=== PATIENT | male | born 1960 | race Caucasian/White ===

== ENCOUNTER 2021-08-03 14:42 | Outpatient (CLI) | payer BC, MEDICARE, SELFPAY ==
--- NOTE | ~2021-08-03 | US_ITS ---
EXAMINATION: US scrotum doppler DATE: 08/03/2021 15:29 INDICATION: Right testicular pain TECHNIQUE: Testicular sonogram utilizing grayscale and Doppler COMPARISON: None. FINDINGS: The right testis measures 4.3 x 3.0 x 1.9 cm. The left testis measures 4.1 x 2.3 x 2.2 cm. There is s ubtle decreased echogenicity and diffuse increased vascular flow of both the right testis and epididy mis relative to the contralateral left testis and left epididymis consistent with right epididymoorch itis. No abscess or hydrocele. The left epididymis is normal with normal vascular flow. There is no v aricocele. IMPRESSION: 1. Asymmetric hyperemic and edematous-appearing right testis and epididymis consistent with right si ded epididymoorchitis. Reviewed, dictated and finalized at location [facility] IMPRESSION: 1. Asymmetric hyperemic and edematous-appearing right testis and epididymis co nsistent with right sided epididymoorchitis.
== END 2021-08-03 14:43 | disposition home or self-care (01) ==
PROVIDERS: Visit Provider Physician Assistant
DX: N50.811 Right testicular pain (principal)
CPT/HCPCS: 76870; 93976

== ENCOUNTER 2022-06-14 01:08 | Day surgery (SDC) | payer BC, MEDICARE, SELFPAY ==
[2022-06-08 14:51] VITALS: BMI 25.0
[2022-06-14 12:42] VITALS: BP 133/85; PULSE 58; RESP 16; TEMP 36.2; O2SAT 100
[2022-06-14] MEDS: LACTATED RINGERS 1,000 ML 150 ML IV CONT (12:52)
--- NOTE | 2022-06-14 13:41 | WPDANESEPPF ---
Anes - Initial Pre Proc Eval Procedure: Operation Date: 06/14/22 14:00 Proposed Procedures p Screening Colonoscopy - Gordon Cedillo MD Date/Time: 06/14/22 13:41 Surgeon: Gordon Cedillo MD Pre Op Diagnosis: neoplasm screening Patient Data Age: 62 Gender: M Height: 1.91 m Weight: 92 kg Last Vital Signs Temp 97.1 F L 06/14/22 12:42 Pulse 58 L 06/14/22 12:42 Resp 16 06/14/22 12:42 BP 133/85 06/14/22 12:42 Pulse Ox 100 06/14/22 12:42 O2 Del Method Room Air 06/14/22 12:42 Allergies Allergy/AdvReac Type Severity Reaction Status Date / Time acetaminophen [From Vicodin] Allergy Rash Verified 06/14/22 12:38 hydrocodone [From Vicodin] Allergy Rash Verified 06/14/22 12:38 Home Medications Medication Instructions Recorded Confirmed Type amlodipine 5 mg tablet 5 mg PO DAILY 06/08/22 06/14/22 History carvedilol 12.5 mg tablet 6.25 mg PO BID 06/08/22 06/14/22 History cyclobenzaprine 10 mg tablet 10 mg PO BID PRN Muscle Spasm 06/08/22 06/14/22 History finasteride 5 mg tablet 5 mg PO DAILY 06/08/22 06/14/22 History meloxicam 15 mg tablet 15 mg PO DAILY PRN Pain 06/08/22 06/14/22 History pravastatin 40 mg tablet 40 mg PO DAILY 06/08/22 06/14/22 History Patient hx anesthesia problems: none Family hx anesthesia problems: none Results Review: All pre-operative results and documents have been reviewed as part of the pre-operative evaluation. [facility] Family History Family History (System 08/05/21 @ 12:40 by Shae Farooq) Sibling Family history of lymphoma Father Family history of heart disease in male family member before age 55 Social History Social History (System 08/05/21 @ 12:40 by Shae Farooq) Smoking status: Never smoker Alcohol intake: never Substance use type: marijuana Living arrangements: with family Spiritual care concerns: No Anes - Eval Final PreProcedure Day of Procedure 06/14/22 13:41 Patient weight: normal Heart: regular rate and rhythm Lungs: clear to auscultation Airway: Mallampati scale class II Neurological: alert and oriented Last oral intake: >/= 8 hours ASA classification: II Emergent: no Anesthetic plan: proceed Anesthesia type and monitoring: general GIVS and standard monitoring Results Review: All pre-operative results and documents have been reviewed as part of the pre-operative evaluation. Informed Consent: The patient's anesthetic plan and its attendant risks and benefits were discussed with the patient/family/POA. Questions were solicited and answers provided to the satisfaction of the patient/family/POA.
--- NOTE | 2022-06-14 13:57 | PM.HPGS ---
History of Present Illness History of Present Illness Consent: Risks, benefits, and alternatives have been discussed and questions answered. Patient agrees to proceed with procedure. Chief complaint: neoplasm screening Narrative: Tor Baker is a 62 year old male here for screening colonoscopy, last one 5 years ago Review of Systems Constitutional: Constitutional: Denies headache(s) and Denies weakness Eyes: Eyes: Denies blurry vision ENT: Reports Normal hearing present, Denies headache(s) and Denies neck pain Cardiovascular: Cardiovascular: Denies chest pain and Denies dyspnea Respiratory: Respiratory: Denies dyspnea Gastrointestinal: Gastrointestinal: Reports no additional gastrointestinal complaints Genitourinary: Genitourinary: Denies dysuria Musculoskeletal: Musculoskeletal: Denies neck pain Integumentary/Breasts: Skin/Breast: Denies dry skin Neurologic: Reports Normal hearing present, Denies headache(s) and Denies weakness Psychiatric: Psychiatric: Denies anxiety Endocrine: Endocrine: Denies change in body appearance Hematologic/Lymphatic: Hematologic/Lymphatic: Denies easy bleeding Allergic/Immunologic: Allergic/Immunologic: Denies urticaria PMFSH Past Medical History Medical History (Updated 06/14/22 @ 13:58 by Gordon Cedillo MD) Colon cancer screening Family History Family History (System 08/05/21 @ 12:40 by Shae Farooq) Sibling Family history of lymphoma Father Family history of heart disease in male family member before age 55 Social History Social History (System 08/05/21 @ 12:40 by Shae Farooq) Smoking status: Never smoker Alcohol intake: never Substance use type: marijuana Living arrangements: with family Spiritual care concerns: No Meds Home Medications and Allergies Home Medications Medication Instructions Recorded Confirmed Type amlodipine 5 mg tablet 5 mg PO DAILY 06/08/22 06/14/22 History carvedilol 12.5 mg tablet 6.25 mg PO BID 06/08/22 06/14/22 History cyclobenzaprine 10 mg tablet 10 mg PO BID PRN Muscle Spasm 06/08/22 06/14/22 History finasteride 5 mg tablet 5 mg PO DAILY 06/08/22 06/14/22 History meloxicam 15 mg tablet 15 mg PO DAILY PRN Pain 06/08/22 06/14/22 History pravastatin 40 mg tablet 40 mg PO DAILY 06/08/22 06/14/22 History Allergies Allergy/AdvReac Type Severity Reaction Status Date / Time acetaminophen [From Vicodin] Allergy Rash Verified 06/14/22 12:38 hydrocodone [From Vicodin] Allergy Rash Verified 06/14/22 12:38 Vital Signs Vital Signs - 24 hr 06/14/22 12:42 Temperature 97.1 F L Pulse Rate 58 L Respiratory Rate 16 Blood Pressure 133/85 Pulse Oximetry 100 Oxygen Delivery Room Air Exam Const: General: comfortable and no acute distress HENMT: Face/Nose/Sinus: Normal nares present Eyes: General: appearance normal, both eyes and all related structures Neck: Neck: no JVD Resp: Auscultation: clear to auscultation bilaterally Cardio: Rate: regular rate Rhythm: regular rhythm GI: Inspection: non-distended GI Palp: Yes Soft to palpation Skin: General skin exam: normal color Neuro: General: gait normal Speech: normal speech Extrem: General: normal to inspection Psych: Mental Status: mental status grossly normal Assessment and Plan Assessment and plan (1) Colon cancer screening: Code(s): Z12.11 - Encounter for screening for malignant neoplasm of colon Status: Acute Assessment and Plan: colonoscopy
[2022-06-14 14:15] VITALS: BP 147/90; PULSE 69; RESP 18; O2SAT 98
[2022-06-14 14:25] VITALS: BP 146/88; PULSE 62; RESP 16; O2SAT 100
[2022-06-14 14:35] VITALS: BP 160/85; PULSE 57; RESP 19; O2SAT 100
== END 2022-06-14 14:43 | disposition home or self-care (01) ==
PROVIDERS: PCP Nurse Practitioner Family; Visit Provider Internal Medicine Gastroenterology
PROC: 0DJD8ZZ Inspection of Lower Intestinal Tract, Via Natural or Artificial Opening Endoscopic (ICD-10-PCS; CPT 45378; principal; 2022-06-14 14:00)
DX: Z12.11 Encounter for screening for malignant neoplasm of colon (principal); K57.30 Diverticulosis of large intestine without perforation or abscess without bleeding; K64.8 Other hemorrhoids
CPT/HCPCS: 45378; J2704; J7120